=== PATIENT | male | born 1945 | race Native Hawaiian/Other Pacific Islander ===

== ENCOUNTER 2017-04-20 07:48 | Outpatient (CLI) | payer MEDICARE, OTHER ==
[2017-04-20 13:27] LABS: HEMOGLOBIN A1C 0.72 g/dL
[2017-04-20 13:30] LABS: BILIRUBIN,TOTAL 0.9 mg/dL (0.2-1.0); BUN - BLOOD UREA NITROGEN 33 mg/dL (6-20); CALCIUM 9.6 mg/dL (8.5-10.3); CARBON DIOXIDE - CO2 26 mmol/L (21-32); CHLORIDE 103 mmol/L (101-111); CHOL/HDL RATIO 3.8 (<5.0); CHOLESTEROL 133 mg/dL; CREATININE 1.4 mg/dL (0.6-1.2); GFR - MDRD 50 (>89); GLUCOSE 112 mg/dL (70-100); HDL CHOLESTEROL 35 mg/dL; LDL/HDL RATIO 1.9 (<3.6); POTASSIUM 4.2 mmol/L (3.5-5.0); SODIUM 139 mmol/L (135-145); TOTAL PROTEIN 6.9 g/dL (6.7-8.2); TRIGLYCERIDES 162 mg/dL; URIC ACID 5.8 mg/dL (2.6-7.2); VLDL CHOLESTEROL 32 mg/dL
== END 2017-04-20 07:49 | disposition home or self-care (01) ==
LOC: LAB.WCP 07:48
PROVIDERS: ATTEND Physician Assistant Medical
DX: E11.9 Type 2 diabetes mellitus without complications (principal); Z12.5 Encounter for screening for malignant neoplasm of prostate; M10.9 Gout, unspecified
CPT/HCPCS: 36415; 80053; 80061; 83036; 84550; G0103; 84153

== ENCOUNTER 2017-07-20 08:00 | Outpatient (CLI) | payer MEDICARE, OTHER ==
[2017-07-20 13:14] LABS: HEMOGLOBIN A1C 0.68 g/dL
[2017-07-20 13:15] LABS: CALCIUM 9.5 mg/dL (8.5-10.3); CREATININE 1.3 mg/dL (0.6-1.2); POTASSIUM 4.2 mmol/L (3.5-5.0)
== END 2017-07-20 08:01 | disposition home or self-care (01) ==
LOC: LAB.WCP 08:00
PROVIDERS: ATTEND Physician Assistant Medical
DX: E11.9 Type 2 diabetes mellitus without complications (principal)
CPT/HCPCS: 36415; 80048; 83036

== ENCOUNTER 2018-04-21 08:00 | Outpatient (CLI) | payer MEDICARE, OTHER ==
[2018-04-21 12:50] LABS: ALBUMIN 4.1 g/dL (3.2-5.5); ALBUMIN/GLOBULIN RATIO 1.5 (1.0-2.2); ALKALINE PHOSPHATASE 80 IU/L (42-121); ALT ALANINE AMINOTRANSFERASE 30 IU/L (10-60); AST ASPARTATE AMINOTRANSFERASE 28 IU/L (10-42); BILIRUBIN,TOTAL 0.6 mg/dL (0.2-1.0); BUN - BLOOD UREA NITROGEN 32 mg/dL (6-20); CALCIUM 9.5 mg/dL (8.5-10.3); CARBON DIOXIDE - CO2 27 mmol/L (21-32); CHLORIDE 104 mmol/L (101-111); CHOL/HDL RATIO 3.2 (<5.0); CHOLESTEROL 136 mg/dL; CREATININE 1.1 mg/dL (0.6-1.2); GFR - MDRD 66 (>89); GLUCOSE 119 mg/dL (70-100); HDL CHOLESTEROL 42 mg/dL; LDL CHOLESTEROL,CALCULATED 61 mg/dL; LDL/HDL RATIO 1.5 (<3.6); SODIUM 139 mmol/L (135-145); TOTAL PROTEIN 6.9 g/dL (6.7-8.2); VLDL CHOLESTEROL 33 mg/dL
[2018-04-21 13:14] LABS: HB2 TOTAL 16.7 g/dL; HEMOGLOBIN A1C 0.69 g/dL; HEMOGLOBIN A1C % 5.9 % (4.6-6.2)
== END 2018-04-21 08:01 | disposition home or self-care (01) ==
LOC: EDBD → LAB.WCP 08:00
PROVIDERS: ATTEND Physician Assistant Medical
DX: E11.9 Type 2 diabetes mellitus without complications (principal)
CPT/HCPCS: 36415; 80053; 80061; 83036; 83721

== ENCOUNTER 2018-04-24 19:08 | Emergency (ER) | payer MEDICARE, OTHER ==
[2018-04-24 19:22] LABS: BASOPHILS # (AUTO) 0.1 10^3/uL (0.0-0.1); EOSINOPHILS # (AUTO) 0.3 10^3/uL (0.0-0.7); EOSINOPHILS % (AUTO) 2.8 %; HGB - HEMOGLOBIN 14.6 g/dL (14.0-18.0); LYMPHOCYTES # (AUTO) 5.6 10^3/uL (1.5-3.5); LYMPHOCYTES % (AUTO) 48.2 %; MEAN CORPUSCULAR HEMOGLOBIN 30.5 pg (27.0-31.0); MEAN CORPUSCULAR HGB CONC 29.7 g/dL (32.0-36.0); MEAN CORPUSCULAR VOLUME 102.7 fL (80.0-94.0); MEAN PLATELET VOLUME 10.7 fL (7.4-11.4); MONOCYTES # (AUTO) 0.6 10^3/uL (0.0-1.0); MONOCYTES % (AUTO) 5.4 %; NEUTROPHILS % (AUTO) 42.6 %; PLT - PLATELET COUNT 169 10^3/uL (130-450); RED BLOOD COUNT 4.77 10^6/uL (4.70-6.10); RED CELL DISTRIBUTION WIDTH 15.6 % (12.0-15.0); WHITE BLOOD COUNT 11.7 x10^3/uL (4.8-10.8)
[2018-04-24 19:24] LABS: VBG BASE EXCESS -34.2 mmol/L (-2 - +2); VBG PCO2 96.3 mmHg (41-51); VBG PO2 41.3 mmHg (25-47); VBG TOTAL CO2 10.4 mmol/L (24-29)
[2018-04-24 19:26] LABS: PT - PROTHROMBIN TIME 11.7 secs (9.9-12.6)
[2018-04-24 19:27] LABS: VBG PH 6.506 (7.31-7.41)
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
[2018-04-24 19:38] LABS: TROPONIN I 0.04 ng/mL (<0.49)
[2018-04-24 19:40] LABS: CREATINE KINASE MB 44.5 ng/mL (0.6-6.3)
[2018-04-24 19:56] LABS: ALBUMIN 3.9 g/dL (3.2-5.5); ALBUMIN/GLOBULIN RATIO 1.4 (1.0-2.2); BILIRUBIN,TOTAL 0.4 mg/dL (0.2-1.0); CALCIUM 11.3 mg/dL (8.5-10.3); CREATININE 1.8 mg/dL (0.6-1.2); TOTAL PROTEIN 6.6 g/dL (6.7-8.2)
[2018-04-24 19:58] LABS: MAGNESIUM 6.4 mg/dL (1.7-2.8)
== END 2018-04-24 23:30 | disposition expired ==
LOC: EDBD 19:08 → ED 19:08 → EDUNIT# 19:08 → ED 23:30
DX: I46.9 Cardiac arrest, cause unspecified (principal); S80.219A Abrasion, unspecified knee, initial encounter; S20.91XA Abrasion of unspecified parts of thorax, initial encounter; V90.09XA Drowning and submersion due to unspecified watercraft overturning, initial encounter; Y93.89 Activity, other specified; Y92.828 Other wilderness area as the place of occurrence of the external cause
CPT/HCPCS: 32551; 36415; 36680; 80053; 82550; 82553; 82803; 83605; 83690; 83735; 84484; 85025; 85610; 85730; 92950; 99282; 99291